=== PATIENT | female | born 1945 | race Caucasian/White ===

== ENCOUNTER → 2017-01-28 | Outpatient (CLI) | payer MEDICARE ==
[~2017-01-28] MED LIST: ASPI-611 PO; ATEN-36 PO; CALC-586 PO; MULT-907 PO; [UNRECOGNIZED DRUG - CODE] PO
== END ==
LOC: WC.BC 10:41
DX: Z12.31 Encounter for screening mammogram for malignant neoplasm of breast (principal)
CPT/HCPCS: 77063; G0202